=== PATIENT | female | born 1965 | race Caucasian/White ===

== ENCOUNTER → 2019-03-24 | Outpatient (CLI) | payer BC, SELFPAY | LOC: FB.CLBR 14:51 | PROVIDERS: ATTEND Nurse Practitioner Family | DX: M54.41 Lumbago with sciatica, right side (principal); G89.29 Other chronic pain | CPT/HCPCS: 72100; 73502-RT ==

== ENCOUNTER 2019-09-06 08:48 | Day surgery (SDC) | payer BC, SELFPAY ==
[~2019-09-06 08:48] MED LIST: Lactated Ringers 1,000 ML IV SCH; Sodium Chloride 0.9% 10 ML Syringe FLUSH PRN
[2019-09-06] MEDS ORDERED: Propofol 200 MG/20 ML SDV IV ONE (08:49)
[2019-09-06] MEDS ORDERED: Midazolam 1 MG/ML 2 ML SDV IV ONE (08:49)
--- NOTE | 2019-09-06 10:16 | PCM.HP.2 ---
H&P History of Present Illness - General Date of Service: 09/06/19 Admit Problem/Dx: Admission Diagnosis/Problem Admission Diagnosis/Problem Colonoscopy - History of Present Illness Initial Comments - Free Text/Narative: 53 yo wf who had a dysplastic colon polyp removed last yr. Is currently without complaints. Due for a follow up c scope. Tested at [place] for Covid-19 on Wednesday. Resulted yesterday 09/05/19 as being negative. - Related Data Allergies/Adverse Reactions: Allergies Allergy/AdvReac Type Severity Reaction Status Date / Time belladonna alkaloids Allergy Itching Verified 09/06/19 09:15 hydrocodone Allergy Rash Verified 09/06/19 09:15 hyoscyamine Allergy Rash Verified 09/06/19 09:15 Penicillins Allergy Rash Verified 09/06/19 09:15 phenobarbital Allergy Itching Verified 09/06/19 09:15 tramadol Allergy Rash Verified 09/06/19 09:15 Home Medications: Home Meds Albuterol [Ventolin HFA] 1 puff INH Q6H PRN 05/26/18 [History] Montelukast [Singulair] 10 mg PO DAILY 05/26/18 [History] Omeprazole Magnesium [Prilosec Otc] 40 mg PO DAILY 05/26/18 [History] SUMAtriptan succinate [Imitrex] 100 mg PO Q2H PRN 05/26/18 [History] Simvastatin [Zocor] 10 mg PO BEDTIME 05/26/18 [History] Varenicline [Chantix] 1 mg PO DAILY 05/26/18 [History] Multivitamin [Multivitamins] 1 each PO DAILY 05/27/18 [History] Past Medical History HEENT History: Reports: Impaired Vision Other HEENT History: HEADACHE Cardiovascular History: Reports: High Cholesterol Respiratory History: Other Respiratory History: PNEUMONIA Gastrointestinal History: Reports: Colon Polyp Other Gastrointestinal History: ACUTE GASTRIC ULCER WITH BLEEDING Genitourinary History: Reports: None 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 FX TOES RIGHT FOOT X2 Neurological History: Reports: Headaches, Chronic, Migraines Psychiatric History: Reports: Depression Other Psychiatric History: NICOTINE ADDICTION Endocrine/Metabolic History: Reports: None Hematologic History: Reports: None Immunologic History: Reports: None Oncologic (Cancer) History: Reports: None Dermatologic History: Reports: None - Infectious Disease History Infectious Disease History: Reports: Chicken Pox, Shingles - Past Surgical History Head Surgeries/Procedures: Reports: None HEENT Surgical History: Reports: Oral Surgery Other HEENT Surgeries/Procedures: EYELID SURGERY LEFT EYE. WISDOM TEETH REMOVED SURGICALLY Cardiovascular Surgical History: Reports: None Respiratory Surgical History: Reports: None GI Surgical History: Reports: Appendectomy, Cholecystectomy, Colonoscopy Other GI Surgeries/Procedures: EXPLORATORY ABDOMEN Female Surgical History: Reports: Section, Hysterectomy, Tubal Ligation Endocrine Surgical History: Reports: None Oncologic Surgical History: Reports: None Dermatological Surgical History: Reports: None Social & Family History - Family History GI: Reports: Other (See Below) Other GI Family History: CROHNS - Tobacco Use Smoking Status *Q: Current Every Day Smoker Years of Tobacco use: 40 Packs/Tins Daily: 0.5 - Caffeine Use Caffeine Use: Reports: Coffee, Tea - Recreational Drug Use Recreational Drug Use: No H&P Review of Systems - Review of Systems: Review Of Systems: See Below General: Reports: No Symptoms HEENT: Reports: No Symptoms Pulmonary: Reports: No Symptoms Cardiovascular: Reports: No Symptoms Gastrointestinal: Reports: No Symptoms Exam - Exam Exam: See Below - Vital Signs Vital Signs: Last Vital Signs Temp 97.7 F 09/06/19 09:14 Pulse 83 09/06/19 09:14 Resp 15 09/06/19 09:14 BP 122/89 09/06/19 09:14 Pulse Ox 99 09/06/19 09:14 Weight: 66.361 kg - Exam General: Alert, Oriented, Cooperative Lungs: Clear to Auscultation, Normal Respiratory Effort Cardiovascular: Regular Rate, Regular Rhythm GI/Abdominal Exam: Normal Bowel Sounds, Soft, Non-Tender Sepsis Event Note - Focused Exam Vital Signs: Vital Signs Temp Pulse Resp BP Pulse Ox 09/06/19 09:14 97.7 F 83 15 122/89 99 Date Exam was Performed: 09/06/19 Time Exam was Performed: 10:12 *Q Meaningful Use (ADM) - VTE *Q VTE Pharmacological Contraindications *Q: Patient Scheduled Surgery - Problem List (1) Personal history of colonic polyps SNOMED Code(s): 736019813 ICD Code: Z86.010 - PERSONAL HISTORY OF COLONIC POLYPS Status: Acute Current Visit: Yes Problem Details: ascending colon low grade dysplasia Problem List Initiated/Reviewed/Updated: Yes Orders Last 24hrs: Active Orders 24 hr Category Date Time Status Patient Status [ADT] Routine ADT 09/06/19 08:45 Active Patient to Empty Bladder [RC] ASDIRECTED Care 09/06/19 08:45 Active Verify Patient Consent Obtain [RC] ASDIRECTED Care 09/06/19 04:00 Active Nothing Per Oral Diet [DIET] Diet 09/06/19 Breakfast Ordered Lactated Ringers [Ringers, Lactated] 1,000 ml Med 09/06/19 08:45 Active IV ASDIRECTED Sodium Chloride 0.9% [Saline Flush] Med 09/06/19 08:45 Active 10 ml FLUSH ASDIRECTED PRN Peripheral IV Insertion Adult [OM.PC] Routine Oth 09/06/19 08:45 Ordered Resuscitation Status Routine Resus Stat 09/05/19 10:11 Ordered Medication Orders Lactated Ringer's (Ringers, Lactated) 1,000 mls @ 125 mls/hr IV ASDIRECTED DRAKE Last Admin: 09/06/19 09:23 Dose: 125 mls/hr Sodium Chloride (Saline Flush) 10 ml FLUSH ASDIRECTED PRN PRN Reason: Keep Vein Open Assessment/Plan Comment:: c scope. Procedure and risks were explained to include bleeding infection, perforation. She asks us to proceed.
--- NOTE | 2019-09-06 10:37 | PCM.OPNOTE ---
- General Post-Op/Procedure Note Date of Surgery/Procedure: 09/06/19 Operative Procedure(s): c scope Findings: nl exam Pre Op Diagnosis: hx of colon polyp with dysplasia. (ascending colon) Post-Op Diagnosis: nl c scope Anesthesia Technique: MAC Primary Surgeon: Blake Vargas Anesthesia Provider: Adriana Walter Pathology: none Complications: None Condition: Good Free Text/Narrative:: see dictation
--- NOTE | 2019-09-06 14:45 | OR ---
DATE OF OPERATION: 09/06/2019 SURGEON: Blake Vargas MD PROCEDURE PERFORMED: Colonoscopy. PREOPERATIVE DIAGNOSIS: Personal history of colon polyps. POSTOPERATIVE DIAGNOSIS: Normal colonoscopy. INDICATIONS FOR PROCEDURE: This is a 53-year-old white female who underwent a screening colonoscopy last year, had a polyp removed from the ascending colon, which was noted to have low-grade dysplasia. It was recommended that she follow up in 1-year for a repeat colonoscopy, presents now without complaints for the study. DESCRIPTION OF OPERATION: After an excellent IV sedation was administered, digital rectal exam was performed. No marked abnormality was noted. Flexible colonoscope was inserted and advanced to the cecum. The prep was excellent. The following findings were noted: Ascending colon, unremarkable. Transverse colon, unremarkable. Descending colon, unremarkable. Sigmoid and rectum, unremarkable. Colon was deflated as the scope was removed. The patient tolerated the procedure well and was taken to recovery room in good condition. RECOMMENDATIONS: Repeat scope in 5 years. /[id number] /MODL
== END 2019-09-06 11:24 | disposition home or self-care (01) ==
LOC: FB.SDS 08:48
PROVIDERS: ATTEND Surgery
DX: Z09 Encounter for follow-up examination after completed treatment for conditions other than malignant neoplasm (principal); F17.210 Nicotine dependence, cigarettes, uncomplicated; E78.00 Pure hypercholesterolemia, unspecified; Z88.0 Allergy status to penicillin; Z86.010 Personal history of colon polyps; Z88.8 Allergy status to other drugs, medicaments and biological substances; Z79.899 Other long term (current) drug therapy
CPT/HCPCS: 45378; J2250; J2704; J7120

== ENCOUNTER 2020-03-08 10:42 | Emergency (ER) | payer BC ==
[2020-03-08] MEDS ORDERED: Aspirin 81 MG Tab.Chew PO ONE (11:04)
--- NOTE | 2020-03-08 11:05 | EDM.PDOC ---
ED HPI GENERAL MEDICAL PROBLEM - General Chief Complaint: Chest Pain Stated Complaint: CHEST PAINS Time Seen by Provider: 03/08/20 10:50 Source of Information: Reports: Patient History Limitations: Reports: No Limitations - History of Present Illness INITIAL COMMENTS - FREE TEXT/NARRATIVE: chest pain with radiation to the arm about 30 mins before presentation was sitting at computer working, no KEENE no sob , no diarrhea, no fever , no cough states she has no cardiac problems takes Betablocker for palpitations denies any dizziness no exposure to COVID affected individual Onset: Today Onset Date: 03/08/20 Duration: Waxing/Waning Location: Reports: Chest Quality: Reports: Ache, Dull Severity: Moderate Improves with: Reports: None Worsens with: Reports: None Context: Reports: Other Associated Symptoms: Reports: No Other Symptoms 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 (took aspirin 324 at home) left chest Pain Score (Numeric/FACES): 6 - Related Data Allergies Allergy/AdvReac Type Severity Reaction Status Date / Time belladonna alkaloids Allergy Itching Verified 09/28/19 08:30 hydrocodone Allergy Rash Verified 09/28/19 08:30 hyoscyamine Allergy Rash Verified 09/28/19 08:30 Penicillins Allergy Rash Verified 09/28/19 08:30 phenobarbital Allergy Itching Verified 09/28/19 08:30 tramadol Allergy Rash Verified 09/28/19 08:30 Home Meds: Home Meds Albuterol [Ventolin HFA] 1 puff INH Q6H PRN 05/26/18 [History] Montelukast [Singulair] 10 mg PO DAILY 05/26/18 [History] Omeprazole Magnesium [Prilosec Otc] 40 mg PO DAILY 05/26/18 [History] SUMAtriptan succinate [Imitrex] 100 mg PO Q2H PRN 05/26/18 [History] Simvastatin [Zocor] 10 mg PO BEDTIME 05/26/18 [History] Varenicline [Chantix] 1 mg PO DAILY 05/26/18 [History] Multivitamin [Multivitamins] 1 each PO DAILY 05/27/18 [History] Ondansetron [Zofran ODT] 4 mg PO Q6H PRN #20 tab.dis 03/08/20 [Rx] Past Medical History HEENT History: Reports: Impaired Vision Other HEENT History: HEADACHE Cardiovascular History: Reports: High Cholesterol Respiratory History: Other Respiratory History: PNEUMONIA Gastrointestinal History: Reports: Colon Polyp Other Gastrointestinal History: ACUTE GASTRIC ULCER WITH BLEEDING Genitourinary History: Reports: None 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 FX TOES RIGHT FOOT X2 Neurological History: Reports: Headaches, Chronic, Migraines Psychiatric History: Reports: Depression Other Psychiatric History: NICOTINE ADDICTION Endocrine/Metabolic History: Reports: None Hematologic History: Reports: None Immunologic History: Reports: None Oncologic (Cancer) History: Reports: None Dermatologic History: Reports: None - Infectious Disease History Infectious Disease History: Reports: Chicken Pox, Shingles - Past Surgical History Head Surgeries/Procedures: Reports: None HEENT Surgical History: Reports: Oral Surgery Other HEENT Surgeries/Procedures: EYELID SURGERY LEFT EYE. WISDOM TEETH REMOVED SURGICALLY Cardiovascular Surgical History: Reports: None Respiratory Surgical History: Reports: None GI Surgical History: Reports: Appendectomy, Cholecystectomy, Colonoscopy Other GI Surgeries/Procedures: EXPLORATORY ABDOMEN Female Surgical History: Reports: Section, Hysterectomy, Tubal Ligation Endocrine Surgical History: Reports: None Oncologic Surgical History: Reports: None Dermatological Surgical History: Reports: None Social & Family History - Family History GI: Reports: Other (See Below) Other GI Family History: CROHNS - Caffeine Use Caffeine Use: Reports: Coffee, Tea ED ROS GENERAL - Review of Systems Review Of Systems: See Below Constitutional: Reports: No Symptoms HEENT: Reports: No Symptoms Respiratory: Reports: No Symptoms. Denies: Shortness of Breath, Wheezing Cardiovascular: Reports: Chest Pain, Palpitations. Denies: Blood Pressure Problem, Dyspnea on Exertion, Edema, Lightheadedness, Orthopnea Endocrine: Reports: No Symptoms GI/Abdominal: Denies: Abdominal Pain, Constipation, Diarrhea : Denies: No Symptoms, Dysuria Musculoskeletal: Reports: No Symptoms Skin: Reports: No Symptoms Neurological: Reports: No Symptoms Psychiatric: Reports: No Symptoms Hematologic/Lymphatic: Reports: No Symptoms Immunologic: Reports: No Symptoms ED EXAM, GENERAL - Physical Exam Exam: See Below Exam Limited By: No Limitations General Appearance: Alert, WD/WN, No Apparent Distress, Anxious Eye Exam: Bilateral Eye: EOMI Ears: Normal External Exam Ear Exam: Bilateral Ear: TM normal Nose: Normal Inspection Throat/Mouth: Normal Oropharynx Head: Atraumatic, Normocephalic Neck: Supple, Non-Tender Respiratory/Chest: Lungs Clear, Normal Breath Sounds Cardiovascular: Normal Peripheral Pulses, Regular Rate, Rhythm, No Edema GI/Abdominal: Soft, Non-Tender Back Exam: Normal Inspection, Full Range of Motion Extremities: Normal Inspection, Normal Range of Motion Neurological: Alert, Oriented Course - Vital Signs Last Recorded V/S: Last Vital Signs Temp 36.7 C 03/08/20 10:42 Pulse 66 03/08/20 10:42 Resp 21 H 03/08/20 10:42 BP 150/90 H 03/08/20 10:42 Pulse Ox 97 03/08/20 10:42 - Orders/Labs/Meds Orders: Active Orders 24 hr Category Date Time Status EKG Documentation Completion [RC] ASDIRECTED Care 03/08/20 11:04 Active EKG 12 Lead [EK] Routine Ther 03/08/20 11:04 Ordered Labs: Laboratory Tests 03/08/20 03/08/20 03/08/20 Range/Units 11:15 11:15 11:15 WBC 8.6 (4.5-12.0) X10-3/uL RBC 4.51 (3.23-5.20) x10(6)uL Hgb 14.3 (11.5-15.5) g/dL Hct 41.7 (30.0-51.3) % MCV 92.3 (80-96) fL MCH 31.8 (27.7-33.6) pg MCHC 34.4 (32.2-35.4) g/dL RDW 12.6 (11.5-15.5) % Plt Count 267 (125-369) X10(3)uL Sodium 140 (135-145) mmol/L Potassium 4.3 (3.5-5.3) mmol/L Chloride 102 (100-110) mmol/L Carbon Dioxide 28 (21-32) mmol/L BUN 8 (7-18) mg/dL Creatinine 0.6 (0.55-1.02) mg/dL Est Cr Clr Drug Dosing 97.89 mL/min Estimated GFR (MDRD) > 60 (>60) BUN/Creatinine Ratio 13.3 (9-20) Glucose 95 (80-116) mg/dL Calcium 9.4 (8.6-10.2) mg/dL Troponin I 4.8 (4.0-60.3) pg/mL Meds: Medications Discontinued Medications Generic Name Dose Route Start Last Admin Trade Name Freq PRN Reason Stop Dose Admin Aspirin 324 mg 03/08/20 11:04 03/08/20 12:40 Aspirin PO 03/08/20 11:05 Not Given ONETIME ONE Al Hydroxide/Mg Hydroxide 15 0 ml 03/08/20 11:54 03/08/20 12:18 ml/ Lidocaine HCl 15 ml PO 03/08/20 11:55 30 ml ONETIME ONE Administration Ondansetron HCl 4 mg 03/08/20 12:31 03/08/20 12:33 Zofran Odt PO 03/08/20 12:32 4 mg ONETIME ONE Administration - Re-Assessments/Exams Free Text/Narrative Re-Assessment/Exam: 03/08/20 12:28 labs , EKG, chest Xray negative . GI cocktail given with good relieve of pain will need to have stress test Departure - Departure Time of Disposition: 12:30 Disposition: Home, Self-Care 01 Condition: Good Clinical Impression: Atypical chest pain, Gastroesophageal reflux disease Prescriptions: Ondansetron [Zofran ODT] 4 mg PO Q6H PRN #20 tab.dis PRN Reason: Nausea Instructions: Nonspecific Chest Pain, Adult, [id number] Referrals: PCP,None [Ordering Only Provider] - Forms: ED Department Discharge Additional Instructions: 1) make appointment to see your Doctor , you will need to have stress test done 2) Recheck cholesterol levels 3) Continue with all other medications Sepsis Event Note (ED) - Focused Exam Vital Signs: Vital Signs Temp Pulse Resp BP Pulse Ox 03/08/20 10:42 36.7 C 66 21 H 150/90 H 97 - My Orders Last 24 Hours: My Active Orders 03/08/20 11:04 EKG Documentation Completion [RC] ASDIRECTED EKG 12 Lead [EK] Routine - Assessment/Plan Last 24 Hours: My Active Orders 03/08/20 11:04 EKG Documentation Completion [RC] ASDIRECTED EKG 12 Lead [EK] Routine
[2020-03-08] MEDS ORDERED: Alum Hydroxide/Mag Hydroxide 15 ML, Lidocaine 2% 15 ML PO ONE ×2 (11:54)
[2020-03-08] MEDS ORDERED: Ondansetron 4 MG Tab.DIS PO ONE (12:31)
== END 2020-03-08 12:45 | disposition home or self-care (01) ==
LOC: FB.ED 10:42
DX: K21.9 Gastro-esophageal reflux disease without esophagitis (principal); E78.00 Pure hypercholesterolemia, unspecified; Z88.0 Allergy status to penicillin; Z88.5 Allergy status to narcotic agent; Z88.8 Allergy status to other drugs, medicaments and biological substances; Z79.899 Other long term (current) drug therapy; Z90.49 Acquired absence of other specified parts of digestive tract; Z90.710 Acquired absence of both cervix and uterus; Z98.51 Tubal ligation status
CPT/HCPCS: 36415; 80048; 84484; 85027; 93005; 99285; A9270; 99283

== ENCOUNTER 2020-06-03 16:40 | Emergency (ER) | payer BC ==
[2020-06-03] MEDS ORDERED: Alum Hydroxide/Mag Hydroxide 15 ML, Lidocaine 2% 15 ML PO ONE ×2 (16:55)
--- NOTE | 2020-06-03 16:57 | EDM.PDOC ---
ED HPI GENERAL MEDICAL PROBLEM - General Chief Complaint: Cardiovascular Problem Stated Complaint: CHEST PAIN Time Seen by Provider: 06/03/20 16:55 Source of Information: Reports: Patient, Old Records, RN History Limitations: Reports: No Limitations - History of Present Illness INITIAL COMMENTS - FREE TEXT/NARRATIVE: 54 yo female who recently quit smoking presents with pain between her sternum and her back associated with very mild sweating and mild nausea. Sx's began about 3:30 pm. No no known hx of CAD. Some L shoulder discomfort since the onset of the substernal sx's. Feels kind of like a burning. Had greasy food for lunch. Gallbladder is out. Had an ECHO and a EST in the past 2 mos both of which were normal. Onset: Today, Sudden Onset Date: 06/03/20 Onset Time: 15:30 Duration: Minutes: Location: Reports: Chest, Back Quality: Reports: Burning Severity: Moderate Improves with: Reports: None Worsens with: Reports: None Context: Reports: Other (See HPI) Associated Symptoms: Reports: Chest Pain, Diaphoresis (slight), Nausea/Vomiting (no vomiting). Denies: Shortness of Breath Treatments CHECKROOM CHIEF: Reports: Other (see below) (none) Midsternal chest radiating into L shoulder Pain Score (Numeric/FACES): 7 - Related Data Allergies Allergy/AdvReac Type Severity Reaction Status Date / Time belladonna alkaloids Allergy Itching Verified 09/28/19 08:30 hydrocodone Allergy Rash Verified 09/28/19 08:30 hyoscyamine Allergy Rash Verified 09/28/19 08:30 Penicillins Allergy Rash Verified 09/28/19 08:30 phenobarbital Allergy Itching Verified 09/28/19 08:30 tramadol Allergy Rash Verified 09/28/19 08:30 Home Meds: Home Meds Albuterol [Ventolin HFA] 1 puff INH Q6H PRN 05/26/18 [History] Montelukast [Singulair] 10 mg PO DAILY 05/26/18 [History] Omeprazole Magnesium [Prilosec Otc] 40 mg PO DAILY 05/26/18 [History] SUMAtriptan succinate [Imitrex] 100 mg PO Q2H PRN 05/26/18 [History] Simvastatin [Zocor] 10 mg PO BEDTIME 05/26/18 [History] Varenicline [Chantix] 1 mg PO BID 05/26/18 [History] Multivitamin [Multivitamins] 1 each PO DAILY 05/27/18 [History] DULoxetine [Cymbalta] 60 mg PO BEDTIME 06/03/20 [History] Dicyclomine [Bentyl] 10 mg PO DAILY 06/03/20 [History] Famotidine 20 mg PO BEDTIME 06/03/20 [History] Propranolol HCl [Propranolol] 60 mg BEDTIME 06/03/20 [History] Past Medical History HEENT History: Reports: Impaired Vision Other HEENT History: HEADACHE Cardiovascular History: Reports: High Cholesterol Respiratory History: Other Respiratory History: PNEUMONIA Gastrointestinal History: Reports: Colon Polyp Other Gastrointestinal History: ACUTE GASTRIC ULCER WITH BLEEDING Genitourinary History: Reports: None POST ANESTHESIA NURSE History: Reports: Other POST ANESTHESIA NURSE History: PARA IV Musculoskeletal History: Reports: Fracture Other Musculoskeletal History: BILATERAL TENOSYNOVITIS, BILATERAL SHOULDER PAIN, MYOFASCIAL PAIN, JOINT PAIN-SHOULDER REGION, 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 FX TOES RIGHT FOOT X2 Neurological History: Reports: Headaches, Chronic, Migraines Psychiatric History: Reports: Depression Other Psychiatric History: NICOTINE ADDICTION Endocrine/Metabolic History: Reports: None Hematologic History: Reports: None Immunologic History: Reports: None Oncologic (Cancer) History: Reports: None Dermatologic History: Reports: None - Infectious Disease History Infectious Disease History: Reports: Chicken Pox, Shingles - Past Surgical History Head Surgeries/Procedures: Reports: None HEENT Surgical History: Reports: Oral Surgery Other HEENT Surgeries/Procedures: EYELID SURGERY LEFT EYE. WISDOM TEETH REMOVED SURGICALLY Cardiovascular Surgical History: Reports: None Respiratory Surgical History: Reports: None GI Surgical History: Reports: Appendectomy, Cholecystectomy, Colonoscopy Other GI Surgeries/Procedures: EXPLORATORY ABDOMEN Female Surgical History: Reports: Section, Hysterectomy, Tubal Ligation Endocrine Surgical History: Reports: None Oncologic Surgical History: Reports: None Dermatological Surgical History: Reports: None Social & Family History - Family History GI: Reports: Other (See Below) Other GI Family History: CROHNS - Caffeine Use Caffeine Use: Reports: Coffee, Tea ED ROS GENERAL - Review of Systems Review Of Systems: See Below Constitutional: Reports: Diaphoresis (? slight) HEENT: Reports: No Symptoms Respiratory: Reports: No Symptoms Cardiovascular: Reports: Chest Pain Endocrine: Reports: No Symptoms GI/Abdominal: Reports: Nausea. Denies: Vomiting : Reports: No Symptoms Musculoskeletal: Reports: Back Pain (between shoulder blades) Skin: Reports: Diaphoresis (? slight) Neurological: Reports: No Symptoms Psychiatric: Reports: No Symptoms ED EXAM, GENERAL - Physical Exam Exam: See Below Exam Limited By: No Limitations General Appearance: Alert, WD/WN, No Apparent Distress Eye Exam: Bilateral Eye: Normal Inspection Ears: Normal External Exam, Normal Canal, Hearing Grossly Normal Ear Exam: Bilateral Ear: Auricle Normal, Canal Normal Nose: Normal Inspection, No Blood Throat/Mouth: Normal Inspection, Normal Lips, Normal Voice, No Airway Compromise Head: Atraumatic, Normocephalic Neck: Normal Inspection Respiratory/Chest: No Respiratory Distress, Lungs Clear, Normal Breath Sounds, No Accessory Muscle Use Cardiovascular: Regular Rate, Rhythm, No Edema GI/Abdominal: Normal Bowel Sounds, Soft, Non-Tender, No Distention Back Exam: Normal Inspection. No: CVA Tenderness (R), CVA Tenderness (L) Extremities: Normal Inspection, Normal Range of Motion, Non-Tender, No Pedal Edema. No: Pedal Edema, Josee's Sign, Leg Pain Neurological: Alert, Oriented, CN II-XII Intact, Normal Cognition, No Mot or/Sensory Deficits Psychiatric: Normal Affect, Normal Mood Skin Exam: Warm, Dry, Intact, Normal Color, No Rash #1 Interpretation EKG Date: 06/03/20 Time: 16:50 Rhythm: NSR Rate (Beats/Min): 67 [place]: Normal P-Wave: Present QRS: Normal ST-T: Normal QT: Normal Comparison: No Change Course - Vital Signs Text/Narrative:: Accepted in transfer by Dr. Crowell at [facility]. Last Recorded V/S: Last Vital Signs Temp 36.8 C 06/03/20 16:40 Pulse 78 06/03/20 16:40 Resp 18 06/03/20 16:40 BP 126/73 06/03/20 17:15 Pulse Ox 98 06/03/20 16:40 - Orders/Labs/Meds Orders: Active Orders 24 hr Category Date Time Status Cardiac Monitoring [RC] .As Directed Care 06/03/20 16:54 Active EKG Documentation Completion [RC] ASDIRECTED Care 06/03/20 16:54 Active Sodium Chloride 0.9% [Saline Flush] Med 06/03/20 17:32 Active 10 ml FLUSH ASDIRECTED PRN Peripheral IV Insertion Adult [OM.PC] Routine Oth 06/03/20 17:32 Ordered EKG 12 Lead [EK] Routine Ther 06/03/20 16:54 Ordered Medication Orders Sodium Chloride (Saline Flush) 10 ml FLUSH ASDIRECTED PRN PRN Reason: Keep Vein Open Last Admin: 06/03/20 17:05 Dose: 10 ml Documented by: BASIL Labs: Laboratory Tests 06/03/20 06/03/20 Range/Units 16:48 16:48 Sodium 138 (135-145) mmol/L Potassium 3.6 (3.5-5.3) mmol/L Chloride 101 (100-110) mmol/L Carbon Dioxide 28 (21-32) mmol/L BUN 13 (7-18) mg/dL Creatinine 0.7 (0.55-1.02) mg/dL Est Cr Clr Drug Dosing 70.94 mL/min Estimated GFR (MDRD) > 60 (>60) BUN/Creatinine Ratio 18.6 (9-20) Glucose 100 (80-116) mg/dL Calcium 9.2 (8.6-10.2) mg/dL Troponin I 4.8 (4.0-60.3) pg/mL Meds: Medications Generic Name Dose Route Start Last Admin Trade Name Freq PRN Reason Stop Dose Admin Sodium Chloride 10 ml 06/03/20 17:32 06/03/20 17:05 Saline Flush FLUSH 10 ml ASDIRECTED PRN Administration Keep Vein Open Discontinued Medications Generic Name Dose Route Start Last Admin Trade Name Freq PRN Reason Stop Dose Admin Aspirin 324 mg 06/03/20 17:04 06/03/20 17:12 Aspirin PO 06/03/20 17:05 324 mg ONETIME ONE Administration Al Hydroxide/Mg Hydroxide 15 0 ml 06/03/20 16:55 06/03/20 17:00 ml/ Lidocaine HCl 15 ml PO 06/03/20 16:56 30 ml ONETIME ONE Administration Nitroglycerin 0.4 mg 06/03/20 17:04 06/03/20 17:10 Nitrostat SL 06/03/20 17:05 0.4 mg ONETIME ONE Administration Nitroglycerin 0.4 mg 06/03/20 17:19 06/03/20 17:15 Nitrostat SL 06/03/20 17:20 0.4 mg ONETIME ONE Administration Nitroglycerin 1 gm 06/03/20 17:27 06/03/20 17:35 Nitro-Bid 2% TOP 06/03/20 17:28 1 gm ONETIME ONE Administration - Re-Assessments/Exams Free Text/Narrative Re-Assessment/Exam: 06/03/20 17:18 No change with GI cocktail po Pain decreased from a 7 to a 4 after first SL NTG. Free Text/Narrative Re-Assessment/Exam: 06/03/20 17:28 CP down to a 1 after 2nd NTG SL, will try NTG paste 1 " Free Text/Narrative Re-Assessment/Exam: 06/03/20 17:49 pain started to come back when she walked to the bathroom and back, now a 2/10 Departure - Departure Time of Disposition: 18:05 Disposition: DC/Tfer to Acute Hospital 02 Reason for Transfer *Q: Other Condition: Serious Clinical Impression: Unstable angina Forms: ED Department Discharge Sepsis Event Note (ED) - Focused Exam Vital Signs: Vital Signs Temp Pulse Resp BP BP Pulse Ox 06/03/20 17:15 126/73 06/03/20 17:10 129/81 06/03/20 16:40 36.8 C 78 18 125/95 H 98 - My Orders Last 24 Hours: My Active Orders 06/03/20 16:54 Cardiac Monitoring [RC] .As Directed EKG Documentation Completion [RC] ASDIRECTED EKG 12 Lead [EK] Routine 06/03/20 17:32 Sodium Chloride 0.9% [Saline Flush] 10 ml FLUSH ASDIRECTED PRN Peripheral IV Insertion Adult [OM.PC] Routine - Assessment/Plan Last 24 Hours: My Active Orders 06/03/20 16:54 Cardiac Monitoring [RC] .As Directed EKG Documentation Completion [RC] ASDIRECTED EKG 12 Lead [EK] Routine 06/03/20 17:32 Sodium Chloride 0.9% [Saline Flush] 10 ml FLUSH ASDIRECTED PRN Peripheral IV Insertion Adult [OM.PC] Routine
[2020-06-03] MEDS ORDERED: Aspirin 81 MG Tab.Chew PO ONE (17:04)
[2020-06-03] MEDS ORDERED: Nitroglycerin 0.4 MG Tab.SL SL ONE ×3 (17:04→18:11)
[2020-06-03] MEDS ORDERED: Nitroglycerin 2% Oint 1 GM UD Packet TOP ONE (17:27)
[2020-06-03] MEDS ORDERED: Sodium Chloride 0.9% 10 ML Syringe FLUSH PRN (17:32)
[2020-06-03] MEDS ORDERED: LORazepam 0.5 MG Tab PO ONE (18:13)
== END 2020-06-03 18:14 ==
LOC: FB.ED 16:40
DX: I20.0 Unstable angina (principal); E78.00 Pure hypercholesterolemia, unspecified; Z87.891 Personal history of nicotine dependence; Z91.048 Other nonmedicinal substance allergy status; Z88.5 Allergy status to narcotic agent; Z88.0 Allergy status to penicillin; Z88.8 Allergy status to other drugs, medicaments and biological substances; Z79.899 Other long term (current) drug therapy
CPT/HCPCS: 36415; 80048; 84484; 93005; 99285; A9270; 93010